=== PATIENT | male | born 1960 | race Caucasian/White ===

== ENCOUNTER → 2019-09-05 15:56 | Outpatient (CLI) | payer OTHER, SELFPAY ==
[2019-09-06 16:17] LABS: COVID19 Sendout NOT DETECTED (Not Detect)
== END ==
PROVIDERS: PCP Family Medicine; Visit Provider Registered Nurse
DX: Z11.59 Encounter for screening for other viral diseases (principal)
CPT/HCPCS: 87635

== ENCOUNTER 2019-09-08 08:30 | Day surgery (SDC) | payer OTHER, SELFPAY ==
[2019-09-08] VITALS (7 sets, daily range): BP systolic 94–138; BP diastolic 61–82; PULSE 58–656; RESP 11–17; TEMP 36.2–36.9; O2SAT 92–99; BMI 30.1
--- NOTE | 2019-09-08 | PATH_ITS ---
[facility] Accession Number: [id number] . 01 Material submitted: . PART A: body - BIOPSY PAPILLA (BILIARY) PART B: esophagus, E-G Junction - BIOPSY GE JUNCTION . 02 Diagnosis: A. Papilla, Biopsy: Duodenal mucosa with active inflammation and reactive epithelial changes including gastric surface foveolar metaplasia. Negative for intraepithelial lymphocytosis and villous blunting. Negative for dysplasia and malignancy. . B. Gastroesophageal Junction, Biopsy: Squamocolumnar junctional mucosa with specialized intestinal metaplasia, consistent with Muller's esophagus. Negative for dysplasia and malignancy. V 09/09/2019 1140 Local . 02 Electronically signed: . Amanda Mauro MD, Pathologist NPI- [id number] . 01 Gross description: . Part A: BIOPSY PAPILLA (BILIARY): Received in formalin is 1 fragment(s) of dao, soft tissue measuring 0.1 x 0.1 x 0.1 cm submitted entirely in 1 cassette(s) Part B: BIOPSY GE JUNCTION: Received in formalin are 3 fragment(s) of dao, soft tissue measuring 0.1 x 0.1 x 0.1 cm to 0.2 x 0.2 x 0.2 cm submitted entirely in 1 cassette(s) /REGINA 09/08/2019 205 Local . 02 Pathologist provided ICD-10: K22.70 . 02 CPT . 770002, 618689 Performed at: 01 [facility] [address] [id number] MD Lorenzo Arreola MD Phone: [phone] [facility]formed at: [facility] [address] [place], [place] [id number] MD Amanda Mauro MD Phone: [phone]
[2019-09-08] MEDS: LACTATED RINGERS 1,000 ML 100 ML IV (09:00)
--- NOTE | 2019-09-08 09:46 | PM.PREOP ---
Pre-operative Note COVID-19 COVID-19 status: Negative Result date/Date tested (Pos, Neg/Pending): 09/05/19 Interval Note History & Physical reviewed/Exam performed by Physician: Yes Changes to H&P: No ASA Class (for procedural sedation): II
[2019-09-08] MEDS: LIDOCAINE 4% SOLN 50 ML 20 ML TOP (10:06)
[2019-09-08] MEDS: fentaNYL 250 MCG/5 ML INJ IV (10:07)
[2019-09-08] MEDS: MIDAZOLAM 5 MG/5 ML VIAL IV (10:07)
--- NOTE | 2019-09-08 10:21 | PM.OP.ENDO ---
Operative Date/Time/Diagnoses Date of procedure: 09/08/19 Time of procedure: 10:21 Pre-op diagnosis: Reflux disease. Asthma that may be related to reflux. Post-op diagnosis: same Procedure & Clinicians Study performed: EGD with cold biopsy Same procedure as scheduled: Yes Indications: Evaluate for evidence of reflux or other problems that might increase reflux Surgeon: Rai Lazcano Procedure Notes SCOAP/Timeout: Performed Procedure in detail: The patient had topical anesthetic applied to oropharynx. She was placed in left lateral decubitus position and underwent IV sedation directed by the surgeon consisting of fentanyl and Versed. A bite block was inserted and the scope was advanced through it into the esophagus. The the vocal cords and structures superior to that along with the esophagus were unremarkable. GE junction was noted at 41 cm from the incisors. There was some evidence of possible Muller's esophagus with tongues of red tissue extending above the GE junction.. The stomach insufflated well. There were no lesions seen in the body, antrum or at the incisura. The pyloric channel was patent. The duodenum was remarkable for a prominent biliary papilla but was otherwise normal to the 4th part. I took a single biopsy of the papilla. The scope was brought back into the stomach and retroflexed. The proximal stomach was normal in appearance. The scope was straightened and brought out through the esophagus again. Biopsies were taken at the GE junction. No other lesions were seen. The scope was removed and the patient tolerated the procedure well. Scope withdrawal time: Not applicable Sedation minutes: 9 Findings: Muller's esophagus (Possible) and other findings (Prominent biliary papilla) Specimen(s): other (GE junction biopsies and biopsy of papilla) Complications: none Post-procedure Recommendations: Continue medication(s) Plan for aftercare: Follow-up after manometry and pH testing complete Disposition: PACU
== END 2019-09-08 11:17 | disposition home or self-care (01) ==
PROVIDERS: PCP Family Medicine; Referring Provider Specialist; Visit Provider Specialist
PROC: 0DJ08ZZ Inspection of Upper Intestinal Tract, Via Natural or Artificial Opening Endoscopic (ICD-10-PCS; CPT 43235; principal; 2019-09-08 09:45)
DX: K22.70 Barrett's esophagus without dysplasia (principal); K21.9 Gastro-esophageal reflux disease without esophagitis; J45.909 Unspecified asthma, uncomplicated
CPT/HCPCS: 43239; 99152; J2250; J3010

== ENCOUNTER → 2020-11-08 14:55 | Outpatient (CLI) | payer OTHER, SELFPAY ==
[2020-11-08 17:04] LABS: COVID19 -Nasal RAPID Negative (Negative)
== END ==
PROVIDERS: PCP Family Medicine; Referring Provider Specialist; Visit Provider Specialist
DX: Z20.822 Contact with and (suspected) exposure to COVID-19 (principal)
CPT/HCPCS: 87635; C9803

== ENCOUNTER 2020-11-09 08:04 | Day surgery (SDC) | payer OTHER, SELFPAY ==
[2020-11-09] VITALS (8 sets, daily range): BP systolic 104–127; BP diastolic 69–85; PULSE 64–73; RESP 12–20; TEMP 36.4–36.6; O2SAT 90–96; BMI 31.0
--- NOTE | 2020-11-09 | PATH_ITS ---
[facility] Accession Number: [id number] . 01 Material submitted: . PART A: duodenum - SECOND PART OF DUODENUM PART B: esophagus, E-G Junction - GE JUNCTION . 02 Diagnosis: A. Duodenum, Second Part, Biopsy: Duodenal mucosa with foveolar metaplasia, consistent with peptic duodenitis. Negative for active inflammation, features of sprue, dysplasia or malignancy. . B. Gastroesophageal Junction, Biopsy: Squamocolumnar junctional mucosa with specialized intestinal metaplasia, consistent with Muller's esophagus. Negative for dysplasia and malignancy. MRV 11/13/2020 1026 Local . 02 Electronically signed: . Juan Betancur MD, PhD, Pathologist NPI- [id number] . 01 Gross description: . Part A: SECOND PART OF DUODENUM: Received in formalin are multiple fragment(s) of dao, soft tissue measuring 1.5 x 0.3 x 0.1 cm in aggregate submitted entirely in 1 cassette(s) Part B: GE JUNCTION: Received in formalin are 4 fragment(s) of dao, soft tissue measuring 0.5 x 0.3 x 0.1 cm to 0.2 x 0.1 x 0.1 cm submitted entirely in 1 cassette(s) /SCOTTIE 11/10/2020 0525 Local . 02 Pathologist provided ICD-10: K22.70 . 02 CPT . 862024, 454838 Performed at: 01 [facility] [address], [place], [place] [id number] MD Lorenzo Arreola MD Phone: [phone] Performed at: 02 [facility] [address] [place], [place] [id number] MD Amanda Mauro MD Phone: [phone]
[2020-11-09] MEDS: LACTATED RINGERS 1,000 ML 200 ML IV (08:59)
--- NOTE | 2020-11-09 09:32 | P.HP_ITS ---
History of Present Illness History of Present Illness Chief complaint: [facility] *$63 copay* Narrative: The patient is a gentleman who has a diagnosis of Muller's esophagus made 1 year ago. He is here for surveillance. He has had a chronic cough and that is been under evaluation. Patient History Medical History (Updated 11/09/20 @ 09:34 by Rai Lazcano MD) Muller's esophagus Chronic anxiety Diabetes Elevated cholesterol Essential hypertension with goal blood pressure less than 130/85 Type 2 diabetes mellitus Surgical History H/O left inguinal hernia repair Family & Social History Family History Father Hypertension Heart disease Diabetes mellitus Mother Hypertension Diabetes mellitus Stroke Social History: household members spouse Tobacco & Substance use: Smoking Status Never smoker alcohol intake current alcohol intake frequency holiday/special occasion Substance Use Type does not use Meds Home Medications and Allergies Home Medications Medication Instructions Recorded Confirmed Type aspirin 81 mg tablet,delayed 81 mg PO DAILY 08/31/19 11/09/20 History release atorvastatin 20 mg tablet 20 mg PO DAILY 08/31/19 11/09/20 History cholecalciferol (vitamin D3) 10 10 mcg PO DAILY 08/31/19 11/09/20 History mcg (400 unit) capsule escitalopram oxalate 20 mg tablet 20 mg PO DAILY 08/31/19 11/09/20 History ibuprofen 400 mg tablet 400 mg PO Q4-6H PRN tab 08/31/19 11/09/20 History lisinopril 20 mg tablet 20 mg PO DAILY 08/31/19 11/09/20 History dulaglutide 0.75 mg/0.5 mL 0.75 mg SUBCUT WEEKLY 11/09/20 11/09/20 History subcutaneous pen injector (Trulicity) omeprazole 20 mg capsule,delayed 20 mg PO DAILY 11/09/20 11/09/20 History release Allergies Allergy/AdvReac Type Severity Reaction Status Date / Time Penicillins Allergy Unknown Verified 10/11/19 15:12 Review of Systems Review of Systems Narrative: Patient has a chronic cough. No heart issues. No black or bloody bowel movements. He is up-to-date on his colonoscopy. Exam Vital Signs (past 8 hours): - 11/09/20 08:35 Temperature 97.8 F Pulse Rate 73 Respiratory Rate 20 Blood Pressure 127/85 Pulse Oximetry 96 Oxygen Delivery Method Room Air Narrative Exam Narrative: Pleasant cooperative patient no apparent distress. Lungs are clear to auscultation. No rales or rhonchi. Heart regular rate and rhythm no murmur gallop. Abdomen is soft nontender without mass. No obvious hernias. Patient is alert and oriented x3. Assessment & Plan Assessment & Plan narrative: Patient with Muller's esophagus for an EGD. I have discussed the procedure with him including risks of bleeding perforation. He appears to understand wishes to proceed.
--- NOTE | 2020-11-09 09:34 | PM.PREOP ---
Pre-operative Note COVID-19 COVID-19 status: Negative Result date/Date tested (Pos, Neg/Pending): 11/08/20 Interval Note History & Physical reviewed/Exam performed by Physician: Yes Changes to H&P: No ASA Class (for procedural sedation): II
[2020-11-09] MEDS: fentaNYL 250 MCG/5 ML INJ IV (09:39)
[2020-11-09] MEDS: MIDAZOLAM 5 MG/5 ML VIAL IV (09:39)
[2020-11-09] MEDS: LIDOCAINE 4% SOLN 50 ML 20 ML TOP (09:40)
--- NOTE | 2020-11-09 09:57 | PM.OP.ENDO ---
Operative Date/Time/Diagnoses Date of procedure: 11/09/20 Time of procedure: 09:58 Pre-op diagnosis: History of Muller's esophagus diagnosed 1 year ago. Patient here for surveillance. Post-op diagnosis: same Procedure & Clinicians Study performed: EGD with cold biopsy Same procedure as scheduled: Yes Indications: Surveillance Surgeon: Rai Lazcano Procedure Notes SCOAP/Timeout: Performed Procedure in detail: The patient had topical anesthetic applied to oropharynx. She was placed in the left lateral decubitus position and underwent IV sedation directed by the surgeon consisting of fentanyl and Versed. A bite block was inserted and the scope was advanced through it into the esophagus. In the region of the epiglottis and larynx there was a subtle bulging fullness that was submucosal. It may simply be a an anatomic variation. The esophagus was unremarkable. GE junction was noted at 41 cm from the incisors. There was a single tiny varix above the GE junction. There was some minor red tongues of tissue extending above the GE junction. This was consistent with a prior diagnosis of Muller's esophagus.. The stomach insufflated well. There were no lesions seen in the body, antrum or at the incisura. The pyloric channel was patent. The duodenum was remarkable for some prominence near the papilla. I biopsied this area. I suspect it is simply a normal variant. Otherwise the duodenum was normal To the 4th part. Scope was brought back into the stomach and retroflexed. The proximal stomach normal in appearance. There was no evidence of a hiatal hernia.. The scope was straightened and brought out through the esophagus again. Biopsies were taken at the GE junction. No other lesions were seen. The scope was removed and the patient tolerated the procedure well. Scope withdrawal time: Not applicable Sedation minutes: 14 Findings: Muller's esophagus and other findings (Slight bulging fullness above the vocal cords adjacent in on the same side of the epiglottis. Tiny but obvious varix just above the GE junction.) Specimen(s): other (Duodenal biopsy. GE junction biopsies.) Complications: none Post-procedure Recommendations: EGD in 3 years and Other recommendation (Consider a CT scan through the larynx to rule out a submucosal mass as part of the evaluation of his chronic cough.) Follow up: as needed Disposition: PACU
== END 2020-11-09 10:55 | disposition home or self-care (01) ==
PROVIDERS: PCP Family Medicine; Referring Provider Specialist; Visit Provider Specialist
PROC: 0DJ08ZZ Inspection of Upper Intestinal Tract, Via Natural or Artificial Opening Endoscopic (ICD-10-PCS; CPT 43235; principal; 2020-11-09 10:00)
DX: K22.70 Barrett's esophagus without dysplasia (principal); K29.80 Duodenitis without bleeding; E11.9 Type 2 diabetes mellitus without complications; I10 Essential (primary) hypertension; E78.00 Pure hypercholesterolemia, unspecified; F41.9 Anxiety disorder, unspecified
CPT/HCPCS: 43239; 99152; J2250; J3010

== ENCOUNTER → 2024-05-11 14:15 | Outpatient (CLI) | payer MEDICARE, OTHER, SELFPAY ==
--- NOTE | 2024-05-11 14:24 | DI.RAD.S_ITS ---
PROCEDURE: XR SHOULDER RT MIN 2V INDICATIONS: Right shoulder pain TECHNIQUE: Three views of the shoulder were acquired. COMPARISON: None. FINDINGS: Bones: Deformity distal clavicle should indicate a malunified old fracture Acromioclavicular and glenohumeral joints: Normal in width and alignment without arthritic change Soft tissues: No soft tissue swelling, calcification or mass. IMPRESSION: Malunified old fracture distal clavicle Dictated by: Hilario Lara M.D. on 05/12/2024 at 13:11 Approved by: Hilario Lara M.D. on 05/12/2024 at 13:12
== END ==
LOC: RAD 14:22
PROVIDERS: PCP Family Medicine; Referring Provider Family Medicine; Visit Provider Family Medicine
DX: M75.81 Other shoulder lesions, right shoulder (principal); S42.031S Displaced fracture of lateral end of right clavicle, sequela
CPT/HCPCS: 73030

== ENCOUNTER 2024-07-01 08:00 | Day surgery (SDC) | payer MEDICARE, OTHER, SELFPAY ==
[2024-07-01] VITALS (7 sets, daily range): BP systolic 92–146; BP diastolic 66–92; PULSE 62–82; RESP 14–16; TEMP 36.3–36.7; O2SAT 93–98
--- NOTE | 2024-07-01 | PATH_ITS ---
[facility] Accession Number: [id number] No. of containers..04 Tissue . 01 Material submitted: . PART A: stomach - ANTRUM PART B: esophagus, E-G Junction - GE JUNCTION PART C: esophagus - LOWER ESOPHAGUS PART D: sigmoid colon - SIGMOID POLYP . 01 Diagnosis: A. ANTRUM: Mild chronic gastritis. No Helicobacter pylori organisms identified on immunohistochemical evaluation. No intestinal metaplasia, dysplasia, or malignancy. . B. GE JUNCTION: Squamous mucosa with mild changes consistent with reflux alterations. Squamocolumnar junctional mucosa with mild chronic inflammation. No goblet cell metaplasia, fungal orgnaisms, dysplasia, or malignancy. . C. LOWER ESOPHAGUS: Esophageal squamous epithelium with no significant diagnostic alterations. No evidence of increased intraepithelial eosinophils. No fungal organisms, dysplasia, or malignancy. . D. 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 [facility] 07/07/2024 1216 Local . 01 Comment: D. This part of the case has also been reviewed by Dr. Juan Betancur, gastrointestinal pathologist, who concurs with the diagnosis. . 01 Electronically signed: . Madina Cullen MD, Pathologist NPI- [id number] . 01 Gross description: . Part A: ANTRUM: Received in formalin are 2 fragment(s) of dao, soft tissue measuring 0.1 x 0.1 x 0.1 cm to 0.4 x 0.4 x 0.3 cm submitted entirely in 1 cassette(s) Part B: GE JUNCTION: Received in formalin are 2 fragment(s) of dao, soft tissue measuring 0.2 x 0.2 x 0.1 cm to 0.4 x 0.4 x 0.2 cm submitted entirely in 1 cassette(s) Part C: LOWER ESOPHAGUS: Received in formalin are 2 fragment(s) of dao, soft tissue measuring 0.3 x 0.2 x 0.1 cm to 0.4 x 0.4 x 0.1 cm submitted entirely in 1 cassette(s) Part D: SIGMOID POLYP: Received in formalin is 1 fragment(s) of dao, soft tissue measuring 0.3 x 0.1 x 0.1 cm submitted entirely in 1 cassette(s) /REGINA 07/02/2024 0117 Local . 01 Microscopic: . A. An immunohistochemical stain was performed to evaluate for Helicobacter organisms and is negative. The control stain showed appropriate reactivity. . D. Sections show colonic mucosa with an aggregate of bland spindled cells in the lamina propria surrounding colonic crypts. The spindled cells show indistinct cell borders, elongated nuclei, and abundant pale eosinophilic cytoplasm. No increase in ganglion cells is seen. No neoplastic epithelial proliferation is identified. 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 The cells are negative for SMA and DOG1, providing no evidence of leiomyoma or gastrointestinal stromal tumor, respectively. All controls stain as expected. . . * This test was developed and the performance characteristics were validated by [facility]. It has not been cleared or approved by the U.S. Food and Drug Administration. . 01 Pathologist provided ICD-10: K29.70, K21.00, K51.40, D36.7 . 01 CPT . 044545, 516696, 987021, 123035, H76809, U36384 Specimen Comment: A courtesy copy of this report has been sent to [facility] Performed at: [address] [address], [place], [place] [id number] MD Lorenzo Arreola MD Phone: [phone]
[2024-07-01] MEDS: LACTATED RINGERS 1,000 ML 42 ML IV (08:19)
[2024-07-01] MEDS: FLEETS ENEMA 1 EACH PR (08:20)
--- NOTE | 2024-07-01 08:40 | PM.HP.IH.1 ---
History of Present Illness History of Present Illness Date Patient Seen: 07/01/24 Time Patient Seen: 08:40 Chief complaint: EGD/Colonoscopy Narrative: 63-year-old white male personal history of Muller's esophagus, presents for EGD for surveillance and screening colonoscopy. No changes in health or bowel habits. COUNTS INCLUDE 234 BEDS AT THE [facility] Medical History Muller's esophagus Chronic anxiety Elevated cholesterol Essential hypertension with goal blood pressure less than 130/85 Type 2 diabetes mellitus Diabetes Surgical History H/O left inguinal hernia repair Family History Father Hypertension Heart disease Diabetes mellitus Mother Hypertension Diabetes mellitus Stroke Social History marital status: household members: spouse occupational status: employed Smoking Status: Never smoker alcohol intake: current substance use type: does not use Meds Home Medications and Allergies Home Medications Medication Instructions Recorded Confirmed Type atorvastatin 20 mg tablet 20 mg PO DAILY 08/31/19 07/01/24 History cholecalciferol (vitamin D3) 10 10 mcg PO DAILY 08/31/19 07/01/24 History mcg (400 unit) capsule escitalopram oxalate 20 mg tablet 20 mg PO DAILY 08/31/19 07/01/24 History dulaglutide 0.75 mg/0.5 mL 0.75 mg SUBCUT WEEKLY 11/09/20 07/01/24 History subcutaneous pen injector (Trulicity) omeprazole 20 mg capsule,delayed 20 mg PO DAILY 11/09/20 07/01/24 History release sodium,potassium,mag sulfates 17.5 See Rx Instructions PO .COMPLEX 05/27/24 Rx gram-3.13 gram-1.6 gram oral soln #354 mL (Suprep Bowel Prep Kit) famotidine 20 mg tablet 20 mg PO BID 06/30/24 07/01/24 History loratadine 10 mg tablet 10 mg PO DAILY 06/30/24 07/01/24 History terbinafine HCl 250 mg tablet 250 mg PO DAILY 06/30/24 07/01/24 History Allergies Allergy/AdvReac Type Severity Reaction Status Date / Time Penicillins Allergy Intermediate rash/hives Verified 07/01/24 08:24 Review of Systems Review of Systems ROS: Yes All systems reviewed with the patient and are negative except as otherwise documented Exam Vital Signs (past 8 hours): - 07/01/24 08:28 Temperature 97.4 F L Pulse Rate 82 Respiratory Rate 16 Blood Pressure 146/92 H Pulse Oximetry 98 Oxygen Delivery Method Room Air Oxygen Delivery Method Room Air Narrative Exam Narrative: Gen: NAD, sitting comfortably in bed, appears well HEENT: Sclera are anicteric, head is normocephalic and atraumatic, trachea is midline. CV: RRR, no JVD Resp: clear to auscultation bilaterally, equal chest wall movement bilaterally Abd: soft, nontender, normoactive bowel sounds Ext: no edema, full range of motion Neuro: Cranial nerves II-XII grossly intact, no focal deficits Skin: No erythema or ecchymosis Assessment & Plan Assessment and plan (1) Muller's esophagus: Status: Acute (2) Colon cancer screening: Status: Acute Assessment & Plan narrative: Patient presents for esophagogastroduodenoscopy and colonoscopy with biopsies Risks, benefits, alternatives to colonoscopy explained, including but not limited to esophageal or bowel perforation or other serious complication requiring surgery at less than 1 in 5000 EGD exam colonoscopies, abdominal pain, cramping or bleeding and less than 1% of EGDs in colonoscopies, and the chances that we find a diagnosis that would require further intervention of about 2%. Patient agrees to proceed. Time-Based Coding :: [TOTAL MINUTES] spent with patient and on the chart (including review of chart, obtaining history, exam, reviewing outside data, placing orders, documenting exam and treatment plan, and counseling patient) on [DATE]. PROFEE Non Licensed Operator Document charge(s): No
--- NOTE | 2024-07-01 09:33 | PM.OP.EC ---
Operative Date/Time/Diagnoses Date of procedure: 07/01/24 Time of procedure: 09:33 Pre-op diagnosis: 1. Barretts esophagus without dysplasia 2. Personal history of polyps Post-op diagnosis: same Procedure & Clinicians Study performed: 1. EGD with biopsies 2. Colonoscopy with cold snare polypectomy sigmoid polyp Same procedure as scheduled: Yes Indications: Surveillance of Muller's esophagus, surveillance personal history of polyps Surgeon: Maik Miller Procedure Notes SCOAP/Timeout: Performed Procedure in detail: Time-out was performed. Mac was induced. Patient was placed in left lateral decubitus position. Bite block was placed. Lubricated gastroscope was inserted through the mouth and 2nd portion of the duodenal. The scope was slowly withdrawn. There was some erythema of the antrum. Biopsy of the antrum were obtained. Retroflexed view did not demonstrate a significant hiatal hernia. GE junction was noted to be 40 cm from the incisors and had irregularities. Biopsies were obtained of the irregularities at the GE junction. Additional specimen of lower esophageal biopsies were obtained and sent. The remainder of the esophagus appeared normal. Gastroscope was removed. The perineum was inspected without any gross abnormality. Lubricated pediatric colonoscope was inserted and advanced to the cecum. The terminal ileum was intubated. The colonoscope was withdrawn slowly inspecting the circumference of the colon. Patient had sigmoid diverticulosis. There was a small benign-appearing polyp in the sigmoid colon which was removed completely and retrieved. Very small polyps may have been missed, prep quality was adequate. Retroflexed view of the rectum showed small, non prolapsed nonbleeding internal hemorrhoids. The scope was withdrawn the patient was taken to PACU in good condition. Scope withdrawal time: 13 Sedation minutes: 21 Findings: Muller's esophagus, diverticulosis, internal hemorrhoids and polyp Specimen(s): other (1. Antrum 2. GE junction 3. Lower esophagus 4. Sigmoid polyp) Complications: none Impression: Barretts esophagus, diverticulosis, sigmoid polyp, internal hemorrhoids Post-procedure Recommendations: Colonscopy in 5 years (Next colonoscopy can be in 7 years.), Reflux diet, EGD in 3 years (Repeat EGD in 3 years.) and Continue medication(s) (Would recommend taking omeprazole as a single agent and discontinuing the famotidine and following a reflux diet.) Plan for aftercare: home Follow up: as needed Disposition: PACU
== END 2024-07-01 10:00 | disposition home or self-care (01) ==
PROVIDERS: PCP Family Medicine; Referring Provider Surgery; Visit Provider Surgery
PROC: 0DJ08ZZ Inspection of Upper Intestinal Tract, Via Natural or Artificial Opening Endoscopic (ICD-10-PCS; CPT 45385; principal; 2024-07-01 08:45)
PROC: 0DJD8ZZ Inspection of Lower Intestinal Tract, Via Natural or Artificial Opening Endoscopic (ICD-10-PCS; CPT 45378; 2024-07-01 08:45)
DX: Z12.11 Encounter for screening for malignant neoplasm of colon (principal); K22.70 Barrett's esophagus without dysplasia; K57.30 Diverticulosis of large intestine without perforation or abscess without bleeding; K64.8 Other hemorrhoids; K29.50 Unspecified chronic gastritis without bleeding; D12.5 Benign neoplasm of sigmoid colon
CPT/HCPCS: 45385; 43239; J2704; J3010